=== PATIENT | female | born 1940 | race Caucasian/White ===

== ENCOUNTER 2017-05-15 12:39 | Emergency (ER) | payer MEDICARE, OTHER ==
--- NOTE | 2017-05-15 13:09 | ED Physician Documentation ---
General Adult - HISTORIAN Historian: patient, spouse - HPI Stated Complaint: Syncopal Episodes Chief Complaint: General Adult Additional Information: Patient states that she has developed a headache and family thought that she needed to come to the ED for evaluation. She does have a history of dementia. Her states that she got up from a chair in the kitchen and blacked out and hit her head. She was out or lightheaded for just 1-3 seconds. When he try to get her up she had another spell and fell and hit her head again. Patient denies any visual disturbance. She can move her hand and legs normally, no numbness or weakness note. No nausea or vomiting appreciated. No history of hypoglycemia noted. Timing: still present, better - ROS CONST: no problems. denies: fever, recent illness, weakness EYES/ENT: none. denies: problems with vision CVS/RESP: none. denies: chest pain, shortness of breath, cough GI/: none. denies: abdominal pain, vomiting, nausea, diarrhea, black stools - PAST HX Past History: none Other History: none Surgeries/Procedures: none Immunizations: referred to PCP Allergies/Adverse Reactions: Allergies Allergy/AdvReac Type Severity Reaction Status Date / Time No Known Allergies Allergy Unverified 05/15/17 12:51 Home Medications: Ambulatory Orders Medication Instructions Recorded NK [NK] 05/15/17 - SOCIAL HX Smoking History: quit greater than 1 year Alcohol Use: none Drug Use: none - FAMILY HX Family History: Yes (DM) - VITAL SIGNS Vital Signs: Vital Signs Temp Pulse Resp BP Pulse Ox 98.1 F 67 16 92/47 96 05/15/17 12:40 05/15/17 12:40 05/15/17 12:40 05/15/17 12:40 05/15/17 12:40 - REVIEWED ASSESSMENTS Nursing Assessment Reviewed: Yes Vitals Reviewed: Yes Progress - EKG/XRAY/CT EKG: NSR ED Results Lab/Radiology - Radiology Radiology Impressions: Examination: CT head without contrast History: HEADACHE AFTER FALL TODAY (Hx) / HEADACHE POST FALL (DICOM Hx) Comparison exam: None available Technique: Noncontrast head CT protocol. Findings: Ventricles and sulci are mildly prominent, though consistent for patient age. Cerebrocerebellar parenchyma demonstrates periventricular low attenuation consistent with small vessel disease. Focal low density area involving the posterior left frontal lobe and right parietal lobe. No evidence for parenchymal hemorrhage. No evidence for mass or mass effect. No midline shift. No extra axial fluid collections. Partial visualization of the paranasal sinuses, mastoid air cells, orbits, skull and scalp without gross irregularity. Impression: Age related changes. No acute parenchymal process. No hemorrhage. Correlation with older exams recommended, if become available, to confirm stability of the presumed age related parenchymal changes. General Adult Physical Exam - PHYSICAL EXAM GENERAL APPEARANCE: no distress EENT: eye inspection normal, ENT inspection normal NECK: normal inspection, thyroid normal, supple RESPIRATORY: no resp distress, chest non-tender, breath sounds normal. No: wheezes, rales, rhonchi CVS: reg rate & rhythm, heart sounds normal, equal pulses, no murmur, no gallop ABDOMEN: soft, no organomegaly, normal bowel sounds, no abdominal bruit, no distension, non-tender SKIN: warm/dry, normal color. No: cyanosis, diaphoresis, jaundice EXTREMITIES: non-tender, normal range of motion, no evidence of injury, no edema NEURO: CN's nml as tested, motor nml, sensation nml, mood/affect nml. No: oriented X3 (to person only), cognition normal (not able to do abstract thinking ), speech/cognition abnml, asymmetric reflexes (all are 2/4 bilaterally) Discharge Clincal Impression: Syncope Additional Instructions: Try to drink lot of fluids. Get up from a laying or sitting position slowly. If you have any further problems to return to the ED or call my office. Condition: Stable Disposition: 01 HOME, SELF-CARE Decision to Admit: NO Date of Decison to Admit: 05/15/17 Decision Time: 14:13
[2017-05-15 13:16] LABS: eGFR (African) > 60; eGFR (Non-African) > 60
[2017-05-15 13:21] LABS: EOSINOPHILS % 3.8 % (0.0-6.8); MEAN CORPUSCULAR HEMOGLOBIN 31.9 pg (28.0-34.0); MEAN CORPUSCULAR VOLUME 95.2 fl (80.0-100.0); MONOCYTES % 6.6 % (0.0-11.0); NEUTROPHILS # 2.1 # k/uL (1.4-7.7)
--- NOTE | 2017-05-15 13:47 | Diagnostic Imaging Report ---
MINA CONN [facility] [id number] [facility] [address] [place] [address]. [id number] Report Submission Date: May 15, 2017 1:42:00 PM CDT Patient Study Name: LYUBOV VALDEZ Date: May 15, 2017 1:22:21 PM CDT Modality Type: CT\SR Gender: F Description: HEAD W/O CONTRAST : 42 Institution: [facility] Physician: MINA CONN Examination: CT head without contrast History: HEADACHE AFTER FALL TODAY (Hx) / HEADACHE POST FALL (DICOM Hx) Comparison exam: None available Technique: Noncontrast head CT protocol. Findings: Ventricles and sulci are mildly prominent, though consistent for patient age. Cerebrocerebellar parenchyma demonstrates periventricular low attenuation consistent with small vessel disease. Focal low density area involving the posterior left frontal lobe and right parietal lobe. No evidence for parenchymal hemorrhage. No evidence for mass or mass effect. No midline shift. No extra axial fluid collections. Partial visualization of the paranasal sinuses, mastoid air cells, orbits, skull and scalp without gross irregularity. Impression: Age related changes. No acute parenchymal process. No hemorrhage. Correlation with older exams recommended, if become available, to confirm stability of the presumed age related parenchymal changes. Electronically signed on May 15, 2017 1:42:00 PM CDT by: Chiki MATOS
[2017-05-15 14:36] VITALS: BP 101/55
== END 2017-05-15 14:35 | disposition home or self-care (01) ==
LOC: ED 12:39
DX: R55 Syncope and collapse (principal); F03.91 Unspecified dementia, unspecified severity, with behavioral disturbance
CPT/HCPCS: 36415; 70450; 80053; 85025; 99283; 99284

== ENCOUNTER 2018-09-11 13:32 | Outpatient (CLI) | payer MEDICARE, OTHER ==
[2018-09-11 13:58] LABS: BASOPHILS % 0.5 % (0.0-1.5)
[2018-09-11 14:44] LABS: eGFR (Non-African) > 60
--- NOTE | 2018-09-11 17:00 | Diagnostic Imaging Report ---
MIAN JAMES [facility] [id number] [facility] [address] [place], [place]. [address] Report Submission Date: Sep 11, 2018 2:48:00 PM CDT Patient Study Name: LYUBOV VALDEZ Date: Sep 11, 2018 2:02:17 PM CDT Modality Type: CT\SR Gender: F Description: CT HEAD W/O : 42 Institution: [facility] Physician: MIAN JAMES Examination: CT head without contrast History: AMNESIA, CONFUSION Comparison exam: None available Technique: Noncontrast head CT protocol. Findings: Ventricles and sulci are prominent. Cerebrocerebellar parenchyma demonstrates periventricular low attenuation consistent with small vessel disease. No evidence for parenchymal hemorrhage. No evidence for mass or mass effect. No midline shift. No extra axial fluid collections. Partial visualization of the paranasal sinuses, mastoid air cells, orbits, skull and scalp without gross irregularity. Impression: Age related changes. No acute parenchymal process. No hemorrhage. Electronically signed on Sep 11, 2018 2:48:00 PM CDT by: Chiki MATOS
== END 2018-09-11 13:34 ==
LOC: RAD 13:32
PROVIDERS: ATTEND Family Medicine
DX: R41.3 Other amnesia (principal)
CPT/HCPCS: 36415; 70450; 80053; 84439; 84443; 85025